=== PATIENT | female | born 1965 | race Caucasian/White ===

== ENCOUNTER 2024-11-27 09:19 | Observation (INO) | payer OTHER, SELFPAY ==
--- NOTE | 2024-11-18 08:14 | EKG12_ITS ---
Test Reason : PRE OP Blood Pressure : */* mmHG Vent. Rate : 59 BPM Atrial Rate : 59 BPM P-R Int : 168 ms QRS Dur : 70 ms QT Int : 412 ms P-R-T Axes : 28 48 50 degrees QTcB Int : 407 ms Sinus bradycardia Otherwise normal ECG Confirmed by SARY PATTERSON, BRANDON ([id number]), dictionary editor JOSE CARLOS CODY ([id number]) on 11/19/2024 5:46:03 AM Referred By: Gloria Rahman Confirmed By: BRANDON OKEEFE MD
[2024-11-18 08:56] LABS: Hematocrit 43.4 % (37-47); Hemoglobin 14.4 g/dL (12.0-15.0); Mean Corp Hgb Conc 33.2 g/dL (32-36); Mean Corpuscular Hgb 30.1 pg (27.0-32.0); Mean Corpuscular Volume 90.8 fL (81-99); Platelet Count 262 K/mm3 (150-450); RBC Distribution Width CV 13.4 % (11.6-14.6); RBC Distribution Width SD 45.7 fl (35.1-43.9); Red Blood Count 4.78 M/mm3 (4.2-5.4); White Blood Count 6.1 K/mm3 (4.4-11.0)
[2024-11-18 09:49] LABS: Anion Gap 11 (5-15); BUN 23 mg/dL (4-19); BUN/Creat Ratio 35.2 RATIO (10-20); Calcium,Total 9.5 mg/dL (7.6-11.0); Carbon Dioxide 25.6 mmol/L (21.0-32.0); Chloride 104 mmol/L (98-108); Creatinine, Serum 0.65 mg/dL (0.70-1.20); EST Glomerular Filtration Rate 101 (>60); Glucose 117 mg/dL (70-99); Potassium 4.5 mmol/L (3.3-5.1); Sodium Level 141 mmol/L (133-145)
[2024-11-18 09:53] LABS: Hemoglobin A1c 6.6 % (<=5.6)
[2024-11-27] VITALS (14 sets, daily range): BP systolic 103–133; BP diastolic 64–97; PULSE 63–86; RESP 16–18; TEMP 36.4–37.1; O2SAT 92–98; BMI 27.4
[2024-11-27 06:25] LABS: Bedside Glucose 131 mg/dL (74-106)
[2024-11-27] MEDS: 0.9% Normal Saline (1000mL) 1,000 ML 15 ML IV (06:30)
--- NOTE | 2024-11-27 07:16 | PRE.ANES_ITS ---
ASA Classification* ASA Classification ASA Classification: 2 Assessment & Plan Anesthesia* Anesthesia Assessment Anesthesia Assessment: Discussed sedation and/or anesthesia options, risks, benefits, and alternatives with patient/parents/legal guardian/POA. Questions invited. The patient/parents/legal guardian/POA seems to understand and agrees to proceed with anesthesia plan. Reviewed the physical assessment, medical history, allergy history and patient home medications list prior to surgery/procedure/anesthetic and documented any changes. Performed airway and anesthesia risk assessments. Anesthesia Type Anesthesia Type: General History Source History Obtained from:: Patient and Chart Anesthesia Focused Assessment* Temperature: 97.6 F Pulse Rate: 63 Blood Pressure: 133/77 Respiratory Rate: 16 Pulse Ox: 95 Oxygen Delivery Method: Room Air Airway Assessment Mouth opens: >3 cm Mallampati Score: IV Teeth Condition: Dentures (Patient has full upper and lower dentures. Patient will be taking them out.) Neck Range of motion (ROM): Full ROM Focused Labs Anesthesia Preop lab: CBC WBC 6.1 K/mm3 (4.4-11.0) 11/18/24 08:15 11/18/24 RBC 4.78 M/mm3 (4.2-5.4) 11/18/24 08:15 11/18/24 Hgb 14.4 g/dL (12.0-15.0) 11/18/24 08:15 11/18/24 Hct 43.4 % (37-47) 11/18/24 08:15 11/18/24 Plt Count 262 K/mm3 (150-450) 11/18/24 08:15 11/18/24 CHEMISTRY Potassium 4.5 mmol/L (3.3-5.1) 11/18/24 08:15 11/18/24 Sodium 141 mmol/L (133-145) 11/18/24 08:15 11/18/24 BUN 23 mg/dL (4-19) H 11/18/24 08:15 11/18/24 Creatinine 0.65 mg/dL (0.70-1.20) L 11/18/24 08:15 Glucose 117 mg/dL (70-99) H 11/18/24 08:15 11/18/24 POC Glucose 131 mg/dL (74-106) H 11/27/24 06:04 11/27/24 COAG Pre-Assessment Diagnosis/Proposed Procedure Planned Operative Procedure(s): Anterior repair, possible Bilateral SSLF with dermis, Mid-urethral sling, Cysto, Bilateral ureteral catheterization. 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 When Was Last Pacemaker Check QUESTION #4 FULL TEXT: You/Your Family Experience fever (hyperthermia) with Anesthesia Last Oral Intake Last Oral intake: Last Oral Intake NPO since 23:00 11/27/24 06:36 Meds taken in AM with sips of Yes 11/27/24 06:36 water? 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 Female Yes 11/13/24 14:52 HX of Motion Sickness No 11/13/24 14:52 HX of N/V After Surgery No 11/13/24 14:52 Non-Smoker Yes 11/13/24 14:52 Duration of Surgery greater No 11/13/24 14:52 than 60 minutes Number of Risk Factors 2 11/13/24 14:52 PONV Score Moderate Risk 11/13/24 14:52 Height & Weight Height & Weight: Anesthesia: Height & Weight Weight: 76 kg 11/27/24 06:36 Respiratory Assessment Respiratory Assessment - hogshead press operator: Respiratory Tract Infection Hx - hogshead press operator Hx Respiratory Tract Infection No 11/13/24 14:52 STOP Sleep Apnea STOP Sleep Apnea - hogshead press operator: STOP Sleep Apnea - hogshead press operator Hx Hypertension No 11/13/24 14:52 Hx Sleep Apnea No 11/13/24 14:52 CPAP BIPAP Do you snore loudly (louder No 11/13/24 14:52 than talking or can be heard Do you often feel tired/ No 11/13/24 14:52 fatigued/ sleepy during daytime? Has anyone observed you stop No 11/13/24 14:52 breathing during sleep? STOP Results Negative 11/13/24 14:52 QUESTION #5 FULL TEXT : Do you snore loudly (louder than talking or can be heard through closed doors)? 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 Specify any problems Hx of Preganancy in last 3 No 11/13/24 14:52 Months Nurse Filling Out Transfusion VCHRISTIN 11/13/24 14:52 & Questions: Date: 11/13/24 11/13/24 14:52 Time: 14:53 11/13/24 14:52 Patient unable to answer at this time (ie. 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 MD) Wears dentures Wears glasses Post-menopausal Diabetes Arthritis Easy bruising Back pain Gastric reflux Former smoker COPD (chronic obstructive pulmonary disease) Leg cramps History of stress test Home Medications ?Medication ?Instructions ?Recorded ?Last Taken ?Type Lactobacillus acidophilus 10 100 mmu cells PO DAILY Unknown History billion cell capsule (NewFlora) acetaminophen 500 mg capsule 1,000 mg PO Q6H PRN pain 11/13/24 Unknown History aspirin 325 mg capsule 325 mg PO .QOD 11/13/24 Unkn own History biotin 10,000 mcg capsule 10,000 mcg PO DAILY 11/13/24 Unknown History cranberry fruit 450 mg tablet 450 mg PO DAILY 11/13/24 Unknown History (cranberry) docusate sodium 100 mg capsule 100 mg PO DAILY 5 Unknown History (Col-Rite) estradiol 0.01% (0.1 mg/gram) 1 appful vaginal .3 TIME S WEEKLY 11/13/24 Unknown History vaginal cream fenofibrate nanocrystallized 145 145 mg PO DAILY 11/13 Unknown History mg tablet folic acid 1 mg tablet 1 mg PO DAILY 11/13/24 Unkno wn History ibuprofen 200 mg tablet (Advil) 600 mg PO Q12H 5 Unknown History multivitamin (Daily Multi-Vitamin 1 tab PO DAILY 11/13 Unknown History tablet) niacin 100 mg capsule 100 mg PO DAILY 11/13/24 Unk nown History omeprazole 20 mg capsule,delayed 20 mg PO DAILY 11/27/24 History release quercetin 500 mg capsule 500 mg PO DAILY 11/13/24 Unk nown History rosuvastatin 10 mg tablet 10 mg PO DAILY 11/13/24 Unkn own History tirzepatide 7.5 mg/0.5 mL 7.5 mg subcut QWEEK 11/13/24 Unknown History subcutaneous pen injector (Mounjaro) zinc gluconate 50 mg tablet 50 mg PO DAILY 11/13/24 Un known History Allergy/AdvReac Type Severity Reaction Status Date / Time adhesive tape Allergy Severe HIVES Verified 11/27/24 06:39 nickel (armando) Allergy Severe Rash Verified 11/27/24 06:39 Surgical History Hx of surgical procedure Hx of oral surgery Hx of hysterectomy Social History Smoking Status: Former smoker Review of Systems (Anesthesia) ROS Narrative System reviewed and no additional complaints, except as documented.
[2024-11-27] MEDS: Cefazolin 2 GM in Syringe IV (07:42)
[2024-11-27] MEDS: Lactated Ringers 1,000 ML 100 ML IV (08:30)
[2024-11-27] MEDS: Lidocaine 1% /Epi 1:100 (20ml) 20 ML Vial (08:40)
--- NOTE | 2024-11-27 09:25 | PCM.OPRPT ---
Operative Report (Standard) Operative Information Date of Procedure: 11/27/24 Pre-Operative Diagnosis: Cystocele, rectocele, stress urinary incontinence Post-Operative Diagnosis: Same Surgery/Procedure Performed: Anterior and posterior repair, mid urethral sling insertion, cystoscopy with bilateral ureteral catheterization process improvement analyst: Yes Lap Hand Tool: Taylor Gallegos Tasks completed by permit review assistant: Retracting Additional agency sales management assistant?: No Type of Anesthesia: General RN Documented Start/Stop Times: Operation Date: 11/27/24 07:30 Case Time Into Pre-Op 11/27/24 05:51 Out of Pre-Op 11/27/24 07:30 Anesthesia Start 11/27/24 07:33 Into Room 11/27/24 07:33 Procedure Start 11/27/24 07:48 Procedure End 11/27/24 09:06 Anesthesia End 11/27/24 09:09 Out of Room 11/27/24 09:09 Into Recovery 11/27/24 09:13 Procedure Start Time: 07:48 Procedure Stop Time: 09:06 Select all DRAINS/GRAFTS/IMPLANTS that apply: Implanted device Implanted device details: Mid urethral sling, Altis Estimated Blood Loss: 20 cc Specimen collected: No Description of surgery: The patient is a 59-year-old female with a cystocele and stress incontinence who presents for surgical intervention. Informed consent was obtained. The patient was taken to the operating room placed on the operating room table. Anesthesia monitored the head, neck, airway, IV access and vital signs throughout the case. Once anesthesia was appropriately administered she was placed into dorsolithotomy position was prepped and draped in usual sterile fashion. A Rey catheter was inserted to straight drain and the bladder was emptied. A thorough examination revealed a small rectocele defect in the midline in addition to a cystocele. The vaginal vault was significantly supported and a sacrospinous ligament fixation was not be needed. The anterior vaginal wall was isolated and injected submucosally with lidocaine with epinephrine. A midline vertical incision was made and sharp and blunt dissection proceeded bilaterally with care being taken to avoid entrance into the vaginal mucosa or the bladder. Dissection continued until the end of the defect apically and bilaterally until pubocervical fascia was identified. A 2 layer repair was performed using 3-0 PDS and 2-0 Vicryl interrupted sutures. The vaginal mucosa was then closed with running interlocking 2-0 Vicryl. The same procedure was performed posteriorly with injection of the submucosa, midline incision, bilateral dissection until the rectovaginal fascia was identified. A 2 layer repair was performed with 3-0 PDS and 2-0 Vicryl suture. The midline incision was closed with running interlocking 2-0 Vicryl. Attention was then turned to the mid urethra which was isolated and injected submucosally. A vertical incision was made and dissection was performed on either side of the urethra with care being taken to avoid entrance into the urethra or the vaginal mucosa. The Altis mid urethral sling was then inserted using the provided trocars into the obturator fascia was bilaterally. Care was taken to avoid entrance into the vaginal mucosa. The sling lay flat against the urethra in good position utilizing the tensioning suture which was then cut. The incision was closed with running interlocking 2-0 Vicryl. The patient was then taken out of Trendelenburg position and the catheter was removed. The cystoscope was inserted through the urethra under direct visualization into the urinary bladder. There was no hemorrhage identified, no foreign body. The ureteral orifices were identified and intubated with a 5 Occitan whistle-tip catheter. The catheter was then easily advanced to 15 cm bilaterally without evidence of injury or obstruction. The cystoscope was then removed revealing no evidence of concern regarding the sling placement in the urethra. The Rey catheter was then reinserted and the balloon was inflated with 10 cc. Patient was then awakened and taken to the recovery room in good condition. There were no complications during the procedure. Surgical Findings: good apical support, sacrospinous ligament fixation aborted. Complications Complications: No Admit VTE Documentation VTE Present on Admission: Yes VTE Mechan Device Prophylaxis: SCD's VTE Pharm Prophylaxis ordered?: Yes
--- NOTE | 2024-11-27 09:41 | DCINST_ITS ---
Discharge Instructions Diet Discharge Diet: No restrictions Activity Discharge Activity: May Shower and - (No swimming, tub bathing or hot tubs) May resume sexual activity in: 8 weeks Lifting Restrictions: 5 pounds for 8 weeks Additional Activity Instructions:: No walking dog, vacuuming, exercise or strenuous activity Dressing / Incision Call your doctor if your incision/area has: Continuous Slow Oozing, Sudden Increased Bleeding, Increased Pain/ Swelling and Foul Smelling Discharge Call your doctor if you observe: Fever of 101 or Higher, Inability to urinate and Inability to have a bowel movement Follow Up Care Test Results: Test results from this visit will be discussed in further detail at your follow- up appointment, if applicable. Discharge Plan Admission Admit Date/Time: 11/27/24 09:19 Attending Provider: Gloria Rahman Primary Care Provider: Israel Ayon Discharge Orders/Prescriptions Prescriptions: New ondansetron 8 mg tablet,disintegrating 8 mg PO Q8H PRN (Reason: nausea and vomiting) Qty: 10 0RF oxycodone-acetaminophen 5-325 mg tablet 1 tab PO Q8H PRN (Reason: pain) 3 Days Qty: 10 0RF cephalexin 250 mg/5 mL suspension for reconstitution 500 mg PO BID 3 Days Qty: 60 0RF No Action omeprazole 20 mg capsule,delayed release(DR/EC) 20 mg PO DAILY rosuvastatin 10 mg tablet 10 mg PO DAILY fenofibrate nanocrystallized 145 mg tablet 145 mg PO QHS Mounjaro 7.5 mg/0.5 mL pen injector 7.5 mg subcut QWEEK Patient Comments: HOLD 7 DAYS LAST DSOE WILL BE 11/19/24 multivitamin [Daily Multi-Vitamin] Tablet 1 tab PO DAILY ibuprofen [Advil] 200 mg tablet 600 mg PO Q12H acetaminophen 500 mg capsule 1,000 mg PO Q6H PRN (Reason: pain) docusate sodium [Col-Rite] 100 mg capsule 100 mg PO DAILY cranberry 450 mg tablet 450 mg PO DAILY Rx Instructions: administer with a meal biotin 10,000 mcg capsule 10,000 mcg PO DAILY folic acid 1 mg tablet 1 mg PO DAILY NewFlora 10 billion cell capsule 100 mmu cells PO DAILY aspirin 325 mg capsule 325 mg PO .QOD Patient Comments: LAST DOSE 11/19/24 zinc gluconate 50 mg tablet 50 mg PO DAILY niacin 100 mg capsule 100 mg PO DAILY quercetin 500 mg capsule 500 mg PO DAILY estradiol 0.01 % (0.1 mg/gram) cream 1 appful vaginal .3 TIMES WEEKLY Disposition Disposition (needs filled in before D/C Order can be placed): Home, Self Care
[2024-11-27] MEDS: Docusate Sodium 100 MG Capsule PO (10:35)
[2024-11-27] MEDS: Enoxaparin 40 MG/0.4 ML Syringe SC (10:35)
[2024-11-27] MEDS: Acetaminophen 500 MG Tablet 1000 MG PO ×2 (11:19→20:56)
[2024-11-27] MEDS: Ibuprofen 600 MG Tablet PO ×2 (13:08→20:55)
[2024-11-27] MEDS: Cefazolin 1 GM/50 ML BAG IV ×2 (13:11→20:57)
--- NOTE | 2024-11-27 15:10 | PCM.POSTANE2 ---
Anesthesia Postop Eval I Sum Anesthesia Postop Eval I Summary Anesthesia Postop Eval I Summary: Anesthesia Postop Eval I: Assessment Summary Airway patent Spontaneous unlabored respirations Mental status nausea Vomiting Anesthesia Postop Eval I: Fluid Summary Crystalloid volume administer (ml) Colloids volume administered ( ml) Blood Product volume administered (ml) Total IV fluid infused Anesthesia Postop Eval I: Summary Notes Anesthesia Complication Anesthesia Complication Comment: Post-operative progress note Anesthesia: Postop Eval II Evaluation Mental status: Awake and Calm Pain Level: 0 nausea: No Vomiting: No Complications Anesthesia Complication: No
[2024-11-27] MEDS: Atorvastatin Calcium 20 MG Tablet PO (20:49)
--- NOTE | 2024-11-27 20:54 | PCM.POST.ANE ---
Anesthesia: Postop Eval I Current Vital Signs Temperature: 97.7 F Pulse Rate: 84 Blood Pressure: 103/88 Respiratory Rate: 18 Pulse Ox: 94 Oxygen Delivery Method: Room Air Assessment Airway patent: Yes Spontaneous unlabored respirations: Yes Mental status: Calm nausea: No Vomiting: No Anesthesia Complication: No Fluid Hydration Crystalloid volume administer (ml): 1,400 Total IV fluid infused: 1,400 Progress Note Anesthesia document: Postop Eval 1 completed: Yes
[2024-11-28 02:21] VITALS: BP 111/61; PULSE 67; RESP 16; TEMP 36.6; O2SAT 97
[2024-11-28] MEDS: Ibuprofen 600 MG Tablet PO ×2 (03:12→10:43)
[2024-11-28 07:51] VITALS: BP 124/63; PULSE 76; RESP 16; TEMP 36.4; O2SAT 97
[2024-11-28] MEDS: Pantoprazole Sodium 20 MG Tablet PO (08:46)
[2024-11-28] MEDS: Docusate Sodium 100 MG Capsule PO (08:46)
[2024-11-28] MEDS: Folic Acid 1 MG Tablet PO (08:46)
[2024-11-28] MEDS: Enoxaparin 40 MG/0.4 ML Syringe SC (08:46)
--- NOTE | 2024-11-28 08:50 | PCM.PN.GU ---
Subjective Subjective Doing well. At first had difficulty with pain management but this has subsided. She refused narcotics. She has had no nausea or vomiting and is taking an fluids and food without difficulty. Objective Data Objective Data Vital Signs: Vital Signs Temp Pulse Resp BP Pulse Ox O2 Del Method 97.6 F L 76 16 124/63 H 97 Room Air 11/28/24 07:51 11/28/24 07:51 11/28/24 07:51 11/28/24 07:51 11/28/24 07:51 11/28/24 07:51 Oxygen Delivery Method Room Air Weight: 77.111 kg Body Mass Index (BMI) 27.4 Intake & Output: Intake and Output for Last 24 Hours 11/26/24 11/27/24 11/28/24 23:59 23:59 23:59 Intake Total 1898.33 / 1898.33 50 / 50 Output Total 999 / 1999 1225 / 1225 Balance 898.33 / -101.67 -1175 / -1175 Lab / Micro Data 11/18/24 08:15 11/18/24 08:15 Physical Exam Narrative Abdomen soft, SCDs in place Rey catheter and vaginal packing removed without incident or concern Const alert, oriented x3 and no apparent distress Assessment & Plan Assessment/Plan (1) Cystocele with rectocele: (2) ROCIO (stress urinary incontinence, female): PLAN: Plan Trial of void Home later today
[2024-11-28] MEDS: Acetaminophen 500 MG Tablet 1000 MG PO (10:43)
[2024-11-28 10:47] VITALS: BP 132/70; PULSE 64; RESP 16; TEMP 36.4; O2SAT 98
--- NOTE | 2024-11-28 12:18 | CASEMGMT ---
MADELINE CM into pt room, pt sitting up in chair with visitor at bedside. Pt denies any homegoing needs at this time. Pt reports being up indep, has voided after kemp removed.
== END 2024-11-28 12:38 | disposition home or self-care (01) ==
LOC: MS3 10:20 → SDC 10:20 → MS3 11-28 07:37
PROVIDERS: Admitting Provider Urology; PCP Family Medicine; Referring Provider Urology; Visit Provider Urology
PROC: (CPT 57260; principal; 2024-11-27 07:15)
DX: N39.3 Stress incontinence (female) (male) (principal); J43.9 Emphysema, unspecified; E11.9 Type 2 diabetes mellitus without complications; N81.11 Cystocele, midline; N81.6 Rectocele; N95.2 Postmenopausal atrophic vaginitis; E78.00 Pure hypercholesterolemia, unspecified; E78.1 Pure hyperglyceridemia; Z79.82 Long term (current) use of aspirin; Z79.85 Long-term (current) use of injectable non-insulin antidiabetic drugs; Z87.891 Personal history of nicotine dependence
CPT/HCPCS: 57288; 57260; 00860; 36415; 80048; 82962; 83036; 85027; 93005; 94668; 96361; 96365; 96366; 96372; 99221; C1771; C1758; G0378; J2405